=== PATIENT | male | born 1970 | race Caucasian/White ===

== ENCOUNTER 2022-05-17 08:35 | Outpatient (CLI) | payer BC ==
[2022-05-17] MEDS ORDERED: Magnevist 469MG/ML 20 ML VIAL ONE (10:32)
== END 2022-05-17 08:36 | disposition home or self-care (01) ==
LOC: CSHMRI 08:35
PROVIDERS: ATTEND Specialist
DX: H81.02 Meniere's disease, left ear (principal); H74.92 Unspecified disorder of left middle ear and mastoid
CPT/HCPCS: 70553; A9579